=== PATIENT | female | born 1965 | race African-American/Black ===

== ENCOUNTER 2017-01-20 11:17 | Emergency (ER) ==
[2017-01-20 11:35] VITALS: BP 142/068
[2017-01-20] MEDS ORDERED: DECADRON IM ONE (11:42)
--- NOTE | 2017-01-20 11:45 | PROVIDER DOCUMENTATION ---
HPI-EENT General - General Chief Complaint: Sore Throat Stated Complaint: HEADACHE/SORE THROAT Time Seen by Provider: 01/20/17 11:36 Source: patient Allergies/Adverse Reactions: Patient Allergies Allergy/AdvReac Type Severity Reaction Status Date / Time No Known Allergies Allergy Verified 12/17/15 16:51 Home Medications: Home Medication List Medication Instructions Recorded Confirmed Last Taken Type Lisinopril/Hydrochlorothiazide 1 each PO DAILY #30 tablet 05/11/13 01/20/1709/21 Rx [Lisinopril-Hctz 20-25 mg Tab] Amoxicillin [Amoxil] 875 mg PO Q12HR #20 tablet 01/20/17 Unknown Rx Fluticasone 50 Mcg Nasal [place] 1 spray JEREMY BID #1 bottle 01/20/17 Unknown Rx [Flonase] Prednisone 20 mg PO DAILY #10 tablet 01/20/17 Unknown Rx - History of Present Illness-EENT General Nature of Presenting Problem: 51 yo female presents to ER with c/o headache, sore throat, body aches that started last night. She denies being exposed to any illnesses. EENT Location: reports: throat, facial Quality of Pain: reports: pressure Severity: reports: mild Onset/Duration: reports: last night Timing: reports: still present Prearrival Treatment: Initiated no prearrival treatment Associated Symptoms: reports: cough, malaise, sore throat Similar Symptoms Previously?: No Recently seen or treated by another doctor?: No - Ears Ear Problem Symptoms: reports: none - Throat/Dental Throat/Dental Problem Symptoms: reports: sore throat Recently seen a dentist or have an appointment?: No Review of Systems - Adult - REVIEW OF SYSTEMS - ADULT Constitutional: reports: see HPI, fatique Eyes: reports: no symptoms reported Ears, Nose, Mouth & Throat: reports: see HPI, sinus problem, throat pain Cardiovascular: reports: no symptoms reported Respiratory: reports: no symptoms reported Gastrointestinal: reports: no symptoms reported Genitourinary: reports: no symptoms reported Musculoskeletal: reports: no symptoms reported Integumentary: reports: no symptoms reported Neurological: reports: no symptoms reported Psychiatric: reports: no symptoms reported Endocrine: reports: no symptoms reported Hematologic/Lymphatic: reports: no symptoms reported Allergic/Immunologic: reports: no symptoms reported All Other Systems: Reviewed and Negative Past History - Adult - PAST MEDICAL HISTORY-ADULT Review of Records: reports: Old Records Reviewed, Nursing Assessment Review, Medications Reviewed, Social history reviewed & non-contributory. Major Childhood Illnesses: reports: denies history Cardiovascular: reports: HTN Respiratory: reports: denies history Gastrointestinal: reports: denies history Obstetrical/Gynecological: reports: denies history Genitourinary: reports: denies history Musculoskeletal: reports: denies history Neurological: reports: denies history Endocrine/Immune: reports: denies history Other Conditions: reports: denies history - PRIOR SURGERIES/PROCEDURES Surgical/Procedure History: reports: BTL - PRIOR HOSPITALIZATIONS Prior Hospitalizations: reports: none - IMMUNIZATION STATUS Childhood Immunizations: UTD Flu Vaccine: See Nurse Assessment - FAMILY HISTORY Family History: reviewed, not pertinent - SOCIAL HISTORY Smoking: denies, non-smoker Substance Use: none/never, denies Alcohol Use Frequency: never Living Situation: family Physical Exam- EENT - Physical Exam EENT Initial Vital Signs Reviewed: Yes General Appearance: appears well, alert, no apparent distress Eye Exam: bilateral eye: normal inspection, PERRL, EOMI Ear Exam: bilateral ear: auricle normal, canal normal, TM normal Nasal Exam: sinus tenderness Throat Exam: pharynx tenderness Respiratory: lungs clear, no pleuratic chest pain, no respiratory distress Cardiovascular: normal peripheral pulses Extremity: normal gait, normal inspection Integumentary: normal color, normal turgor, warm/dry Neurologic: grossly normal Psych/Mental Status: normal mood/affect, normal thought content, normal thought process, oriented x 3 Progress - PLAN OF CARE/RESULTS Progress/Plan/Lab Results: 1230-Discussed results/dx/tx/discharge and follow up; patient verbalized understanding. Laboratory Tests 01/20/17 01/20/17 11:37 11:37 Influenza A (Rapid) NEGATIVE Influenza B (Rapid) NEGATIVE Group A Strep Rapid NEGATIVE Orders Category Date Time Status DIRECT STREP PL Stat Lab 01/20/17 11:[address] Stat Lab 01/20/17 11:37 Completed Dexamethasone [Decadron] Med 01/20/17 11:42 Discontinued 10 mg IM NOW ONE Departure - Departure Time of Disposition Order: 12:32 DIAGNOSIS: Sore throat, Body aches Sinusitis Qualifiers: Sinusitis location: maxillary Chronicity: acute Recurrence: non-recurrent Qualified Code(s): J01.00 - Acute maxillary sinusitis, unspecified Disposition: HOME 01 Certified Medical Emergency: Emergent Condition: Good Additional Instructions: Follow up with primary care doctor. Take medications as prescribed. Stay well hydrated. Alternate motrin with tylenol as needed for for/body aches. ED Follow Up Instructions: You have been treated by a care provider in the Emergency Department. These instructions are being provided to you so you can have an understanding of how to care for yourself upon discharge. Upon discharge from the Emergency Department, you are responsible for making arrangements for follow-up care by a physician of your choice. Take all prescribed medications as directed. Return to the Emergency Department immediately for any new or worsening symptoms. You may call the Physician Referral phone number at [phone] to obtain a list of Physicians who are taking new patients. Prescriptions: Amoxicillin [Amoxil] 875 mg PO Q12HR #20 tablet Fluticasone 50 Mcg Nasal [place] [Flonase] 1 spray JEREMY BID #1 bottle Prednisone 20 mg PO DAILY #10 tablet Referrals: Melanie Miguel MD [STAFF PHYSICIAN] - None,PCP [Primary Care Provider] - Instructions: Amoxicillin capsules or tablets, Sinusitis, [id number], Fluticasone nasal spray, Sore Throat, [id number], Prednisone tablets Attestation - Physician/ MADHAVI Attestation Patient care was provided by Advanced Practice Provider:: Yes Advanced Practice Provider:: Elham Platt Advanced Practice Provider documentation review:: The Mid-level provider documentation, treatment plan and medical decision making was reviewed by the physician who agrees with all treatment and medical decision making by the P.
== END 2017-01-20 12:43 | disposition home or self-care (01) ==
LOC: P.ED 11:17
DX: J01.00 Acute maxillary sinusitis, unspecified (principal); R51 Headache; J02.9 Acute pharyngitis, unspecified; M79.1 Myalgia; R53.81 Other malaise; R05 Cough; I10 Essential (primary) hypertension; Z79.899 Other long term (current) drug therapy
CPT/HCPCS: 87081; 87430; 87804; 96372

== ENCOUNTER 2019-10-04 05:55 | Inpatient (IN) ==
[2019-10-04] MEDS ORDERED: NS 1,000 ML IV ONE (06:25)
[2019-10-04] MEDS ORDERED: MORPHINE IV ONE (06:25)
[2019-10-04] MEDS ORDERED: ZOFRAN IV ONE (06:25)
[2019-10-04 06:30] LABS: URINE SOURCE CLEAN CATCH
[2019-10-04 06:33] LABS: BILIRUBIN URINE NEGATIVE (NEGATIVE); BLOOD URINE SMALL (NEGATIVE); COLOR YELLOW; GLUCOSE URINE NEGATIVE (NEGATIVE); KETONE URINE NEGATIVE (NEGATIVE); LEUKOCYTES URINE MODERATE (NEGATIVE); NITRITE URINE NEGATIVE (NEGATIVE); PH URINE 5.5; PROTEIN URINE 30 mg/dL (NEGATIVE); SP GRAVITY URINE 1.028; TURBIDITY URINE HAZY (CLEAR); UROBILINOGEN URINE NORMAL (NORMAL)
[2019-10-04 06:34] LABS: UR EPITHELIAL CELLS <10 /HPF (<10); URINE BACTERIA 2+ /HPF; URINE WBC 20-40 /HPF (<10)
[2019-10-04 06:39] LABS: BASO# 0.07 X1000 (0.0-0.2); BASO% 0.6 % (0.0-0.8); EOS# 0.24 X1000 (0.0-0.7); HEMATOCRIT 37.2 % (37.0-47.0); HEMOGLOBIN 11.5 g/dL (12.0-16.0); IMM GRAN# 0.18 X1000 (0.0-0.04); IMM GRAN% 1.5 % (0.0-0.5); LYMPH# 2.15 X1000 (1.2-3.4); LYMPH% 17.5 % (20.5-51.1); MCH 24.8 PG (27-31); MCHC 30.9 g/dL (33-37); MCV 80.2 FL (81-99); MONO# 0.91 X1000 (0.11-0.59); MONO% 7.4 % (1.7-9.3); MPV 9.2 FL (7.4-10.4); NEUT# 8.71 X1000 (1.4-6.5); PLT 335 X1000 (130-400); RBC 4.64 XMIL (4.2-5.4); WBC 12.26 X1000 (4.8-10.8)
[2019-10-04 07:47] LABS: AGAP 12; ALBUMIN 4.2 g/dL (3.5-5.0); ALKALINE PHOSPHATASE 83 U/L (32-104); BUN 12 mg/dL (8-22); CALCIUM 9.2 mg/dL (8.8-10.2); CHLORIDE 102 mmol/L (98-107); COSMO 274; CREATININE 0.4 mg/dL (0.5-0.9); ESTIMATED GFR > 60; GLUCOSE 102 mg/dL (70-104); GOT 16 U/L (10-30); GPT 18 U/L (10-36); LIPASE 29 U/L (13-60); POTASSIUM 3.9 mmol/L (3.5-5.1); SODIUM 137 mmol/L (136-145); TCO2 23 mmol/L (25-35); TOTAL PROTEIN 7.2 g/dL (6.3-8.3)
--- NOTE | 2019-10-04 08:51 | Diag Imaging Result Doc PS360 ---
EXAM: CT ABD/PELVIS W/IV CONT ONLY HISTORY: RLQ abd pain TECHNIQUE: CT abdomen and pelvis with intravenous contrast COMPARISON: 06/01/2016 FINDINGS: There is basilar atelectasis. No calcified gallstones or adjacent inflammation. There is fatty infiltration of the liver. No inflammation about the pancreas. Normal spleen, adrenal glands, and kidneys. No hydronephrosis. Normal aorta. There is wall thickening to the sigmoid colon with adjacent inflammation. There are scattered diverticula in this location. Small irregular fluid collection adjacent to the sigmoid colon measuring 13 x 28 mm. No air within this. No bowel obstruction. The urinary bladder is mildly distended and is normal. Normal uterus and ovaries. IMPRESSION: Sigmoid diverticulitis. Possible small developing adjacent abscess. This exam was performed using automated exposure control, adjustment of mA or kV according to patient size, and/or use of iterative reconstruction technique. Electronically signed by Kike Capone 10/04/2019 8:48 AM
[2019-10-04 09:42] LABS: INR 1.06; PROTIME 14.3 Seconds (11.0-16.0)
[2019-10-04 09:43] LABS: PTT 37.8 Seconds (22.3-41.8)
--- NOTE | 2019-10-04 09:45 | Diag Imaging Result Doc PS360 ---
EXAM: CHEST-1 VIEW HISTORY: r/o sepsis TECHNIQUE: Single view COMPARISON: 05/19/2018 FINDINGS: The lungs are well expanded. The heart is not enlarged. The vessels are not distended. There are no infiltrates. No effusion identified. IMPRESSION: No pneumonia Electronically signed by Kike Capone 10/04/2019 9:43 AM
[2019-10-04] MEDS ORDERED: ZOSYN 3.375 GM in NS 50 ML IV ONE (10:08)
[2019-10-04] MEDS: NS 1,000 ML IV SCH ×2 (12:10→20:59)
[2019-10-04] MEDS ORDERED: FLU VACCINE IM ONE (12:16)
--- NOTE | 2019-10-04 14:43 | HISTORY AND PHYSICAL ---
PRIMARY CARE PROVIDER: None. CHIEF COMPLAINT: Abdominal pain, nausea and vomiting, diarrhea. HPI: Ms Diamond is a is a 54-year-old female who carries a past medical history of hypertension, hyperlipidemia currently not taking any home medications who reports lower abdominal pain that is "sharp in nature for 4 days. She had 1 episode of nausea and vomiting, diarrhea, but also constipated at the same time. No fever, no chills. No chest pain, no shortness of breath, no palpitations, no cough. She came to the ED to be evaluated. Abdomen and pelvis CT revealed a sigmoid diverticulitis with a possible small develop adjacent abscess. She was admitted to the [facility], made n.p.o., started on IV antibiotics, antiemetics and a pain regimen. PAST MEDICAL HISTORY: Hypertension, hyperlipidemia. PAST SURGICAL HISTORY: Fibroid removal. FAMILY HISTORY: Father from an [place] at unknown age. SOCIAL HISTORY: Multiple family members at the bedside. She is not . She has never been smoker, she does not vape. No alcohol or illicit drug use. HOME MEDICATIONS: None. PHYSICAL EXAMINATION: VITAL SIGNS: Temperature is 98.9 degrees, heart rate 93, respiratory 16, blood pressure 106/76, O2 is 96% on room air. GENERAL: Ms. Diamond is a pleasant 54-year-old female who is sitting up in the bed in no acute distress many family members at bedside. HEENT: Atraumatic, normocephalic, JUSTIN. NECK: Supple, trachea midline. CARDIOVASCULAR: S1, S2 appreciated. No murmurs, gallops, rubs noted. RESPIRATORY: Lung sounds clear bilaterally. GI: Is soft, generalized tenderness with palpation, positive bowel sounds 4 quads. Lower extremities are negative for edema. NEURO: No focal deficits noted. DIAGNOSTIC DATA: Abdomen pelvis CT sigmoid diverticulitis, possible small developing adjacent abscess. LABORATORY DATA: White count 12, hemoglobin and hematocrit 11 and 37, platelet count is 335,000. Sodium 137, potassium 3.9, BUN 12, creatinine 0.4, blood glucose is 102. Urinalysis 2+ bacteria, moderate leukocytes, negative for nitrites. ASSESSMENT AND PLAN: 1. Sigmoid diverticulitis with a possible small developing abscess. We will continue to monitor for any worsening of symptoms. We will place her on IV Zosyn. She has had no nausea, vomiting or diarrhea since admission is requesting some fluids. We will try a clear liquid diet to see how she tolerates and continue with the pain and antiemetics. Patient will need further education on diverticulitis as well as a diverticular diet. 2. Leukocytosis secondary to #1. 3. Clinical dehydration secondary to #1. 4. Urinary tract infection. Continue on antibiotics. 5. Hypertension. She is currently normotensive. She does not take any home medications. 6. Hyperlipidemia, does not taking any home medications. 7. Further recommendations to follow physician evaluation, laboratory and diagnostic data. Dictated by BELLO Laguerre for Bartolome Peters MD cc: Bartolome Peters MD
--- NOTE | 2019-10-04 15:43 | HISTORY AND PHYSICAL ---
ADDENDUM REPORT: Patient seen and examined by myself. Full note dictated and discussed with nurse practitioner. Patient presented to the hospital with abdominal pain and nausea and vomiting for the past [address] demonstrated diverticulitis. The patient's abdomen currently is tender. She is afebrile. We are going to admit her to the hospital n.p.o., antibiotics, IV fluids and will follow. cc: Bartolome Peters MD
[2019-10-04] MEDS: ZOSYN 3.375 GM in NS 50 ML IV SCH ×2 (16:12→20:59)
[2019-10-04] MEDS: MORPHINE IV PRN (20:58)
[2019-10-04] MEDS: ZOFRAN IV PRN (20:58)
[2019-10-05] MEDS: MORPHINE IV PRN (02:12)
[2019-10-05] MEDS: ZOFRAN IV PRN (02:13)
[2019-10-05] MEDS: NS 1,000 ML IV SCH ×3 (04:18→21:08)
[2019-10-05] MEDS: ZOSYN 3.375 GM in NS 50 ML IV SCH ×4 (04:19→21:07)
[2019-10-05 06:56] LABS: BASO# 0.06 X1000 (0.0-0.2); BASO% 0.8 % (0.0-0.8); EOS# 0.26 X1000 (0.0-0.7); EOS% 3.5 % (0.0-10.0); HEMATOCRIT 34.2 % (37.0-47.0); HEMOGLOBIN 10.4 g/dL (12.0-16.0); IMM GRAN% 1.3 % (0.0-0.5); LYMPH# 1.51 X1000 (1.2-3.4); LYMPH% 20.2 % (20.5-51.1); MCH 24.7 PG (27-31); MCHC 30.4 g/dL (33-37); MCV 81.2 FL (81-99); MONO# 0.51 X1000 (0.11-0.59); MONO% 6.8 % (1.7-9.3); MPV 9.1 FL (7.4-10.4); NEUT# 5.04 X1000 (1.4-6.5); NEUT% 67.4 % (42.2-75.2); PLT 317 X1000 (130-400); RBC 4.21 XMIL (4.2-5.4); RDW 13.6 % (11.5-14.5); WBC 7.48 X1000 (4.8-10.8)
[2019-10-05 07:16] LABS: AGAP 12; ALBUMIN 3.9 g/dL (3.5-5.0); ALKALINE PHOSPHATASE 84 U/L (32-104); BUN 8 mg/dL (8-22); CALCIUM 9.1 mg/dL (8.8-10.2); CHLORIDE 102 mmol/L (98-107); COSMO 274; CREATININE 0.5 mg/dL (0.5-0.9); ESTIMATED GFR > 60; GLUCOSE 93 mg/dL (70-104); GOT 14 U/L (10-30); GPT 17 U/L (10-36); MAGNESIUM 2.2 mg/dL (1.5-2.7); POTASSIUM 3.7 mmol/L (3.5-5.1); SODIUM 138 mmol/L (136-145); TCO2 24 mmol/L (25-35); TOTAL PROTEIN 7.3 g/dL (6.3-8.3)
[2019-10-05] MEDS ORDERED: LINZESS PO ONE (09:30)
--- NOTE | 2019-10-05 12:32 | PROGRESS NOTE ---
DATE: 10/05/2019 SUBJECTIVE: Patient notes she is still having some abdominal pain and cramping. Denies any diarrhea. In fact, she states she is having constipation. Notes that she attempted to drink a Pepsi earlier and it made her stomach hurt worse. OBJECTIVE: Vital signs: Temperature 98, pulse 88, respiratory rate 18, blood pressure 142/57. General: Patient is awake, pleasant. She is in no distress. HEENT: Normocephalic. Neck: Supple. Cardiovascular: Regular rate. Chest: Clear. Abdomen: Soft, diffusely but minimally tender. Positive bowel sounds. Extremities: Moves all extremities. ASSESSMENT: 1. Sigmoid diverticulitis. 2. Leukocytosis. 3. Hypertension. 4. Urinary tract infection. 5. Volume depletion, improved. 6. Hyperlipidemia. PLAN: We will continue patient in the hospital, continue antibiotics, fluids, pain control. We will continue liquid diet and will follow. Currently, she is off her blood pressure medications because until this last reading, her blood pressures have actually been 105 and 110 systolic without medicines. We will follow and if elevates, we will place her on her home meds cc: Bartolome Peters MD MTDD
[2019-10-06 02:58] VITALS: BP 168/96
[2019-10-06] MEDS: ZOSYN 3.375 GM in NS 50 ML IV SCH ×2 (04:26→10:07)
[2019-10-06] MEDS: NS 1,000 ML IV SCH (04:26)
[2019-10-06] MEDS: MORPHINE IV PRN (06:01)
[2019-10-06] MEDS ORDERED: LOSARTAN PO SCH (09:00)
[2019-10-06] MEDS ORDERED: HYDROCHLOROTHIAZIDE PO SCH ×2 (09:00)
[2019-10-06] MEDS ORDERED: COZAAR PO SCH (09:00)
--- NOTE | 2019-10-06 15:41 | DISCHARGE SUMMARY ---
ADMISSION DATE: 10/04/2019 DISCHARGE DATE: 10/06/2019 DISCHARGE DIAGNOSES: 1. Diverticulitis, improved. 2. Nausea and vomiting, resolved. 3. Hypertension, stable. 4. Leukocytosis, resolved. 5. Questionable urinary tract infection. CONSULTATIONS: None. PROCEDURE: None. HOSPITAL COURSE: The patient is a 54-year-old female who presented to the hospital with nausea, vomiting, abdominal pain, diagnosed with diverticulitis. She was placed on antibiotics. She improved. On discharge she is eating a regular diet and she is in no distress. DISPOSITION: Patient will be discharged home. She will continue her home blood pressure medications. We will discharge her on Augmentin. She is instructed to follow up outpatient with her primary care in one to two weeks, sooner should symptoms worsen or return. cc: Bartolome Peters MD
--- NOTE | 2019-10-06 15:46 | DISCHARGE SUMMARY ---
ADMISSION DATE: 10/04/2019 DISCHARGE DATE: 10/06/2019 PRIMARY CARE PROVIDER: None. PERTINENT PROCEDURES: Abdomen and pelvis CT. Sigmoid diverticulitis, possible small developing adjacent abscess. DISCHARGE DIAGNOSES: 1. Sigmoid diverticulitis, improved. 2. Leukocytosis, resolved. 3. Hypertension. Continue blood pressure medications. 4. Urinary tract infection, improved. 5. Fluid volume depletion, improved. 6. Hyperlipidemia. HOSPITAL COURSE: Briefly, Ms. Diamond is a 54-year-old female with a past medical history of hypertension, hyperlipidemia, who is not currently taking any home medications, who came to the ED complaining of lower abdominal pain that was sharp in nature and had 1 episode of nausea, vomiting, and diarrhea. She had no reported fever or chills. She came to the ED to be evaluated. She had an abdomen and pelvis CT performed that showed a sigmoid diverticulitis with the possibility of a small developing adjacent abscess. She was admitted to the [facility], made n.p.o., started on IV antibiotics, antiemetics, placed on the pain regimen and given IV fluids. Over the course of her hospitalization, she has improved. Her diet was advanced, and she has tolerated that well. She was educated on her new diagnosis as well as a low-fiber diet and given prescriptions for antibiotics as well as blood pressure medications. VITAL SIGNS: At time of discharge, temperature 99.2 degrees, heart rate 82, respirations 16, blood pressure 168/96. O2 is 99% on room air. DISCHARGE DIET: Low fiber. DISCHARGE MEDICATIONS: 1. Augmentin 875/125 one each p.o. b.i.d. for 10 tabs. 2. Losartan/hydrochlorothiazide 100/25 mg tablet 1 each p.o. daily for 30 days. FOLLOWUP: Ms. Diamond is being discharged back home with self care. She has been given education on her diverticulitis, low-fiber diet, as well as prescriptions for antibiotic and blood pressure medications. She has been encouraged to follow up with the PCP from the list that has been provided to her. She can return to the ED or call 911 for any worsening of symptoms. Dictated by BELLO Laguerre for Bartolome Peters MD cc: Bartolome Peters MD
--- NOTE | 2019-11-01 17:34 | PROVIDER DOCUMENTATION ---
This chart was entered by Ana Molina Scribe, acting as scribe for Stefan Styles MD. HPI-Abdominal Pain/GI Problem - General Chief Complaint: Abdominal Pain Stated Complaint: ABD PAIN Time Seen by Provider: 10/04/19 07:00 Source: patient Allergies/Adverse Reactions: Patient Allergies Allergy/AdvReac Type Severity Reaction Status Date / Time No Known Allergies Allergy Verified 10/04/19 06:02 Home Medications: Home Medication List Medication Instructions Recorded Confirmed Last Taken Type Unobtainable [Home Meds 10/04/19 10/04/19 Unknown History Unobtainable] - History of Present Illness-ABD Nature of Presenting Problems: 54 yof presents to the eed with c/o suprapubic pain with n/v intermittent for 3 days. pt on exam has suprapubic tenderness. pt sts last BM was 4 days prior Abdominal Pain Onset Location: reports: suprapubic Quality of Pain: reports: aching, fullness Severity in ED: reports: moderate Onset/Duration: reports: 3 days ago Timing: reports: still present, intermittent, getting worse Activities at Onset: reports: light activity Exposure to sick contacts?: No Modifying Factors: improves with: nothing Associated Symptoms: reports: constipation, fever/chills, genitourinary problems , nausea, vomiting. denies: back/neck pain, chest pain, cough, headaches, shortness of breath Last BM: 4 days ago Dark Stools Present?: reports: none noticed Rectal Bleeding: reports: none # of Diarrhea Episodes: 0 Rectal Pain: reports: none # of Vomiting Episodes: 1 Emesis Description: reports: other (yellow) Bruising or Bleeding Gums?: No Similar Symptoms Previously?: Yes Recently seen or treated by another doctor?: No Review of Systems - Adult - REVIEW OF SYSTEMS - ADULT Constitutional: reports: see HPI, chills, fever, fatique Eyes: reports: no symptoms reported Ears, Nose, Mouth & Throat: reports: no symptoms reported Cardiovascular: reports: no symptoms reported Respiratory: denies: cough, shortness of breath, wheezing Gastrointestinal: reports: see HPI, abdominal pain, constipation, nausea, vomiting. denies: diarrhea Genitourinary: reports: see HPI, urinary retention Musculoskeletal: denies: back pain, neck pain Integumentary: reports: no symptoms reported Neurological: denies: dizziness/vertigo, headache/migraines Psychiatric: reports: no symptoms reported Endocrine: reports: no symptoms reported Hematologic/Lymphatic: reports: no symptoms reported Allergic/Immunologic: reports: no symptoms reported All Other Systems: Reviewed and Negative Past History - Adult - PAST MEDICAL HISTORY-ADULT Review of Records: reports: Old Records Reviewed, Nursing Assessment Review, Medications Reviewed, Social history reviewed & non-contributory. Major Childhood Illnesses: reports: denies history Cardiovascular: reports: HTN Respiratory: reports: denies history Gastrointestinal: reports: diverticulosis, GERD Obstetrical/Gynecological: reports: denies history Genitourinary: reports: denies history Musculoskeletal: reports: denies history Hand Dominance: Right Handed Neurological: reports: denies history Psychiatric: reports: denies history Endocrine/Immune: reports: denies history Other Conditions: reports: denies history - PRIOR SURGERIES/PROCEDURES Surgical/Procedure History: reports: BTL - PRIOR HOSPITALIZATIONS Prior Hospitalizations: reports: none - IMMUNIZATION STATUS Childhood Immunizations: UTD, See Nurse Assessment Flu Vaccine: See Nurse Assessment - FAMILY HISTORY Family History: reviewed, not pertinent - SOCIAL HISTORY Smoking: denies Substance Use: denies Alcohol Use Frequency: never Living Situation: family Physical Exam-General - PHYSICAL EXAM-ADULT Initial Vital Signs Reviewed: Yes (fever and tachycardia noted) - CONSTITUTIONAL General Appearance: appears well, alert, mild distress - EYES Eyes: PERRL/EOMI, pink conjunctivae - HEAD, EARS, NOSE, MOUTH & THROAT HENMT: moist mucous membranes, normal ENT inspection - NECK Neck: non-tender, full range of motion, supple, normal inspection - RESPIRATORY Respiratory: chest non-tender, lungs clear, normal breath sounds - CARDIOVASCULAR Cardiovascular: normal peripheral pulses, tachycardia (103) - CHEST (BREASTS) Chest/Breast: deferred - GASTROINTESTINAL (ABDOMEN) Abdominal Exam: normal bowel sounds, soft, tenderness (generalized). negative: distended, guarding, rigid, rebound - LYMPHATIC Lymphatic: no adenopathy - MUSCULOSKELETAL Back Exam: normal inspection, no CVA tenderness, no vertebral tenderness Extremity: normal range of motion, non-tender, normal gait, normal inspection - SKIN Integumentary: normal color, normal turgor, warm/dry - NEUROLOGIC Neurologic: grossly normal - PSYCHIATRIC Psych/Mental Status: normal mood/affect, normal thought content, normal thought process, oriented x 3 Progress - PLAN OF CARE/RESULTS Progress/Plan/Lab Results: Vital Signs - 8 hr 10/04/19 05:56 10/04/19 07:26 10/04/19 09:27 Temperature 99.7 F H 98.9 F Pulse Rate 103 H 92 H 93 H Respiratory Rate 20 18 16 Blood Pressure 118/72 130/78 106/76 O2 Sat by Pulse Oximetry 95 98 96 Laboratory Results - last 24 hr 10/04/19 10/04/19 10/04/19 06:05 06:25 07:20 WBC 12.26 H RBC 4.64 Hgb 11.5 L Hct 37.2 MCV 80.2 L MCH 24.8 L MCHC 30.9 L RDW Std Deviation 14.0 Plt Count 335 MPV 9.2 Immature Gran % (Auto) 1.5 H Neut % (Auto) 71.0 Lymph % (Auto) 17.5 L Russell % (Auto) 7.4 Eos % (Auto) 2.0 Baso % (Auto) 0.6 Immature Gran # (Auto) 0.18 H Neut # (Auto) 8.71 H Lymph # (Auto) 2.15 Russell # (Auto) 0.91 H Eos # (Auto) 0.24 Baso # (Auto) 0.07 Sodium 137 Potassium 3.9 Chloride 102 Carbon Dioxide 23 L Anion Gap 12 BUN 12 Creatinine 0.4 L Estimated GFR/1.73 m2 > 60 BUN/Creatinine Ratio 30 Glucose 102 Calculated Osmolality 274 Calcium 9.2 Total Bilirubin 0.20 AST 16 ALT 18 Alkaline Phosphatase 83 Creatine Kinase Troponin T Total Protein 7.2 Albumin 4.2 Globulin 3.0 Albumin/Globulin Ratio 1.0 Lipase 29 Plasma Lactate Urine Source CLEAN CATCH Urine Color YELLOW Urine Turbidity HAZY Urine pH 5.5 Ur Specific [place] 1.028 Urine Protein 30 A Ur Glucose (Stick) NEGATIVE Ur Ketones (Stick) NEGATIVE Urine Blood SMALL A Urine Nitrite NEGATIVE Urine Bilirubin NEGATIVE Urobilinogen Dipstick NORMAL Urine Leukocytes MODERATE A Urine WBC (Auto) 20-40 A Urine RBC (Auto) 10-20 A U Epithel Cells (Auto) <10 Urine Bacteria (Auto) 2+ 10/04/19 10/04/19 10/04/19 07:20 07:20 07:20 WBC RBC Hgb Hct MCV MCH MCHC RDW Std Deviation Plt Count MPV Immature Gran % (Auto) Neut % (Auto) Lymph % (Auto) Russell % (Auto) Eos % (Auto) Baso % (Auto) Immature Gran # (Auto) Neut # (Auto) Lymph # (Auto) Russell # (Auto) Eos # (Auto) Baso # (Auto) Sodium Potassium Chloride Carbon Dioxide Anion Gap BUN Creatinine Estimated GFR/1.73 m2 BUN/Creatinine Ratio Glucose Calculated Osmolality Calcium Total Bilirubin AST ALT Alkaline Phosphatase Creatine Kinase 57 Troponin T < 0.010 Total Protein Albumin Globulin Albumin/Globulin Ratio Lipase Plasma Lactate 0.7 Urine Source Urine Color Urine Turbidity Urine pH Ur Specific [place] Urine Protein Ur Glucose (Stick) Ur Ketones (Stick) Urine Blood Urine Nitrite Urine Bilirubin Urobilinogen Dipstick Urine Leukocytes Urine WBC (Auto) Urine RBC (Auto) U Epithel Cells (Auto) Urine Bacteria (Auto) Orders Category Date Time Status Cardiac Monitoring DIRECTED Care 10/04/19 08:54 Active IV Insertion ORDERED Care 10/04/19 08:54 Active Notify MD of + Sepsis Screen NOW Care 10/04/19 08:54 Active Notify Physician As Ordered Care 10/04/19 08:54 Active NPO Diet 10/04/19 06:14 Active CHEST-1 VIEW [RAD] Stat Exams 10/04/19 08:[address] ABD/PELVIS W/IV CONT ONLY [CT] Stat Exams 10/04/19 06:25 Completed BLOOD CULTURE [BLDCUL] Stat Lab 10/04/19 08:46 Ordered CBC WITH DIFF [HEME] Stat Lab 10/04/19 06:25 Completed CK PROFILE [SP CHEM] Stat Lab 10/04/19 07:20 Completed COMPREHENSIVE METABOLIC PANEL [CHEM] Stat Lab 10/04/19 07:20 Completed LACTATE, PLASMA [CHEM] Stat Lab 10/04/19 07:20 Completed LIPASE [CHEM] Stat Lab 10/04/19 07:20 Completed PROTIME WITH INR [COAG] Stat Lab 10/04/19 09:18 Received PTT [COAG] Stat Lab 10/04/19 09:18 Received TROPONIN T Stat Lab 10/04/19 07:20 Completed UA [URINALYSIS W/POSS RFLX CULT] [URINALYSIS] Stat Lab 10/04/19 06:05 Completed URINE CULTURE [RM] Routine Lab 10/04/19 08:51 Ordered 0.9% Sodium Chloride Inj [Ns] 1,000 ml Med 10/04/19 06:25 Discontinued IV 999 mls/hr Morphine Med 10/04/19 06:25 Discontinued 4 mg IV NOW ONE Ondansetron [Zofran] Med 10/04/19 06:25 Discontinued 4 mg IV NOW ONE Abd Pain/OB <20 weeks Stat Oth 10/04/19 06:14 Ordered Oxygen Device Stat Oth 10/04/19 08:54 Active Result Diagrams: 10/04/19 06:25 10/04/19 07:20 - REASSESSMENT Reassessment #1 Time Reassessed: 08:32 Status: unchanged Reassessment #2 Time Reassessed: 09:33 Status: unchanged - XRAY 1 XRAY: Bilateral XRAY Study: Chest Impression: See EMR Report - CT/MRI 1 CT Study: Abdomen, Pelvis Impression: See EMR Report (EXAM: CT ABD/PELVIS W/IV CONT ONLY HISTORY: RLQ abd pain TECHNIQUE: CT abdomen and pelvis with intravenous contrast COMPARISON: 06/01/2016 FINDINGS: There is basilar atelectasis. No calcified gallstones or adjacent inflammation. There is fatty infiltration of the liver. No inflammation about the pancreas. Normal spleen, adrenal glands, and kidneys. No hydronephrosis. Normal aorta. There is wall thickening to the sigmoid colon with adjacent inflammation. There are scattered diverticula in this location. Small irregular fluid collection adjacent to the sigmoid colon measuring 13 x 28 mm. No air within this. No bowel obstruction. The urinary bladder is mildly distended and is normal. Normal uterus and ovaries. IMPRESSION: Sigmoid diverticulitis. Possible small developing adjacent abscess. This exam was performed using automated exposure control, adjustment of mA or kV according to patient size, and/or use of iterative reconstruction technique. Electronically signed by Kike Capone 10/04/2019 8:48 AM 10/04/19 0848 Interpreting Physician: Kike Capone MD Dictated Date/Time: 10/04/19 0845 cc: Raquel Alcazar DO; None,PCP) Departure - Departure Date of Disposition Decision: 10/04/19 Time of Disposition Decision: 09:34 DIAGNOSIS: Diverticulitis Disposition: ADMITTED INPATIENT 09 Certified Medical Emergency: Emergent Condition: Stable Referrals and Follow-Ups: None,PCP [Primary Care Provider] - - Critical Care Note This patient required my direct & personal management of CC.: No Attestation - Physician/ MADHAVI Attestation Patient care was provided by Advanced Practice Provider:: No The physician spent face to face time with patient:: Yes Advanced Practice Provider documentation review:: Supervising physician onsite and consulted in the evaluation and care of this patient. The physician did have a face to face encounter with the patient. This chart was documented by the indicated scribe, (Ana Molina Scribe) and accurately reflects the services I performed and decisions made by me, Stefan Styles MD, as attested by the provider's signature.
== END 2019-10-06 10:51 | disposition home or self-care (01) | DRG 392 ==
LOC: P.ED 05:55 → P.MEDSURG 10:38
PROVIDERS: ATTEND Family Medicine